=== PATIENT | male | born 1985 | race Caucasian/White ===

== ENCOUNTER 2017-02-28 09:52 | Emergency (ER) | payer OTHER ==
[~2017-02-28] VITALS: Ht 172.7 cm; Wt 65.8 kg
[~2017-02-28 09:52] MED LIST: Buspar PO; NEURONTIN600 M1 PO; ZYPREXA ZYDIS20 MG PO
[2017-02-28 10:33] LABS: HEMATOCRIT 46.8 % (38.0-50.0); MCH 32.1 PG (29.0-34.0); MCHC 36.3 G/DL (30.0-36.0); MCV 88.5 FL (86-99); MEAN PLAT.VOLUME 10.2 uM^3 (9.0-12.4); PLATELET COUNT 275 K/uL (156-360); RBC DIS.WIDTH-CV 12.3 % (11.8-14.6); RBC DIS.WIDTH-SD 39.9 % (39-53); RED BLOOD COUNT 5.29 M/uL (4.00-5.50); WHITE BLOOD COUNT 8.5 K/uL (4.1-10.2)
[2017-02-28 10:50] LABS: CHLORIDE 104 mEq/L (99-109); SODIUM 138 mEq/L (136-147)
[2017-02-28 10:52] LABS: GLUCOSE 103 mg/dL (70-99)
[2017-02-28 10:53] LABS: ANION GAP 7 MEQ/L (2-14)
[2017-02-28 10:54] LABS: TOTAL BILIRUBIN 1.2 mg/dL (0.0-1.0)
[2017-02-28 10:55] LABS: ALKALINE PHOSPHATASE 80 IU/L (3-129); SERUM ETHYL ALCOHOL < 10 mg/dL
[2017-02-28 10:56] LABS: GFR ESTIMATE (CALCULATED) > 59 mL/min/
[2017-02-28 10:57] LABS: UREA NITROGEN (BUN) 9 mg/dL (9-23)
[2017-02-28 11:20] LABS: ADD MIUA? YES; BILIRUBIN NEGATIVE; BLOOD NEGATIVE; COLOR AMBER ((YELLOW)); GLUCOSE (STRIP) NEGATIVE; KETONES NEGATIVE; LEUKOCYTES NEGATIVE; NITRITE NEGATIVE; PROTEIN (STRIP) 100; SPECIFIC GRAVITY 1.023 (1.000-1.030); UROBILINOGEN 0.2 MG/DL (0.2-1.0)
[2017-02-28 11:29] LABS: THC CANNABINOIDS NEGATIVE (50 ng/mL)
[2017-02-28 11:30] LABS: AMPHETAMINE NEGATIVE (500 ng/mL); BARBITURATES NEGATIVE (200 ng/mL); BENZODIAZEPINES NEGATIVE (150 ng/mL); COCAINE NEGATIVE (150 ng/mL); INTERNAL CONTROLS VALID? YES; METHADONE NEGATIVE (200 ng/mL); METHAMPHETAMINE NEGATIVE (500 ng/mL); OPIATES (MORPHINE) NEGATIVE (100 ng/mL); OXYCODONE NEGATIVE (100 ng/mL); PHENCYCLIDINE NEGATIVE (25 ng/mL); PROPOXYPHENE NEGATIVE (300 ng/mL); TRICYCLIC ANTIDEPRESSANTS NEGATIVE (300 ng/mL)
[2017-02-28 11:42] LABS: BACTERIA 1+ /HPF; EPITHELIAL CELLS NONE SEEN /HPF; GRANULAR CASTS 0-5 /LPF; MUCUS 4+ /LPF; RED BLOOD CELLS NONE SEEN /HPF (0-5); UCUL ADDED? NO
[2017-02-28 11:43] LABS: WHITE BLOOD CELLS 0-5 /HPF (0-5)
[2017-02-28 16:54] VITALS: BP 128/72
== END 2017-02-28 16:54 ==
LOC: EME 09:52
PROVIDERS: Emergency Medicine
DX: F20.9 Schizophrenia, unspecified (principal); F17.200 Nicotine dependence, unspecified, uncomplicated
CPT/HCPCS: 80053; 81003; 85027; 90837; 99281; 99285; G0480